=== PATIENT | female | born 1975 | race Caucasian/White ===

== ENCOUNTER → 2016-06-27 | Outpatient (CLI) | payer OTHER ==
--- NOTE | 2016-06-28 05:49 | RAD ---
Procedure: XR ABDOMEN 2 VIEWS SUPINE ERECT Exam Date: 06/27/2016 Ordering Provider: Luz Renee Clinical Indication: EPIGASTRIC, RUQ PAIN Comparison: None Findings: Postsurgical changes in the lumbosacral spine. There is no small or large bowel distention. There are no air-fluid levels. There is no pneumoperitoneum. There are no suspicious calcifications. There is no acute skeletal abnormality. Impression: 1. No acute findings. Electronically signed by: Jermaine Alfaro MD 06/28/2016 5:49 AM CDT
== END | disposition home or self-care (01) ==
LOC: YCFC.O 08:14
PROVIDERS: ATTEND Nurse Practitioner Family
DX: R10.13 Epigastric pain (principal); R19.7 Diarrhea, unspecified

== ENCOUNTER → 2016-07-02 | Outpatient (CLI) | payer OTHER ==
--- NOTE | 2016-07-02 17:51 | US ---
EXAM DESCRIPTION: Gall Bladder CLINICAL HISTORY: 41 years, Female, EPIGASTRIC PAIN COMPARISON: None. FINDINGS: Gallstone present about 1.5 cm apparently freely movable. Wall not thickened. No tenderness to scanning the gallbladder. Common bile duct 3.5 mm. Intrahepatic ducts not dilated. Liver 14.2 cm. Normal echogenicity. Head and body pancreas unremarkable. Pancreatic tail not well seen. IMPRESSION: Gallstone present about 1.5 cm. No biliary distention or tenderness to scanning the gallbladder. Liver unremarkable Electronically signed by: Billy Skaggs MD 07/02/2016 5:51 PM CDT
== END | disposition home or self-care (01) ==
LOC: US 10:28
PROVIDERS: ATTEND Nurse Practitioner Family
DX: R10.13 Epigastric pain (principal)

== ENCOUNTER 2016-08-03 06:00 | Day surgery (SDC) | payer SELFPAY ==
[2016-08-03] MEDS ORDERED: SODIUM CHL 0.9% 100ML MINI-BAG 100 ML IVPB ONE (06:52)
[2016-08-03] MEDS: LACTATED RINGERS 1,000 ML ONE (07:40)
[2016-08-03] MEDS ORDERED: MIDAZOLAM INJ 5 MG/5 ML VIAL ONE (08:22)
[2016-08-03] MEDS ORDERED: fentaNYL CITRATE INJ 50 MCG/ML AMP ONE (08:22)
[2016-08-03] MEDS ORDERED: ROCURONIUM BROMIDE 10 MG/ML VIAL ONE (08:22)
[2016-08-03] MEDS: ceFAZolin SODIUM 1 GM VIAL ONE (08:28)
[2016-08-03] MEDS: BUPIVACAINE 0.25% W/EPI 50 ML VIAL INJ ONE (09:10)
[2016-08-03] MEDS: HEPARIN SODIUM (PORCINE) 10,000 UNITS/ML VIAL ONE (09:10)
[2016-08-03] MEDS ORDERED: HYDROmorphone HCL INJ 2 MG/ML VIAL ONE (09:31)
[2016-08-03] MEDS ORDERED: SUGAMMADEX SODIUM 200 MG/2 ML VIAL IV ONE (09:55)
[2016-08-03 11:00] VITALS: BP 122/78
--- NOTE | 2016-08-03 11:09 | OP ---
DATE OF PROCEDURE: 08/03/16 PREOPERATIVE DIAGNOSIS: 1. Symptomatic cholelithiasis. POSTOPERATIVE DIAGNOSIS: 1. Symptomatic cholelithiasis. 2. Chronic cholecystitis. 3. Aberrant right hepatic duct. PROCEDURE: 1. Laparoscopic cholecystectomy with intraoperative cholangiography using fluoroscopy. SURGEON: Charanjit Craft MD. DAIRY EQUIPMENT SPECIALIST: None. ANESTHESIA: Local infiltration of 0.25% Marcaine with epinephrine and general endotracheal anesthesia. INDICATION: The patient is a 41-year-old male who has had approximately 6+ weeks symptoms of right upper quadrant pain with radiation to the back and bloating, nausea, vomiting, and fatty food intolerance. She has also had diarrhea and a large amount of belching. She has sonographically diagnosed cholelithiasis. There is no history of hepatitis or jaundice. The patient was brought to the Surgical Suite today for cholecystectomy after the risks, benefits and alternatives to the procedure were discussed and accepted. FINDINGS: The patient had multiple adhesions to the gallbladder and to the right lobe of the liver. No other obvious pathology was identified. Intraoperative cholangiography revealed free flow into the duodenum with no filling defects or strictures noted. It is noted, however, that there is an aberrant right hepatic duct and that the cystic duct emptied into the aberrant right hepatic duct which emptied into the distal common bile duct. DESCRIPTION OF PROCEDURE: After adequate general endotracheal anesthesia was obtained, the patient was prepped and draped in the usual sterile manner. She was given Ancef preoperatively. Surgical time-out was taken. The infraumbilical area was infiltrated with local anesthesia. A transverse incision was made with a sharp knife. Dissection was carried down through the skin and subcutaneous tissue to the midline fascia using blunt dissection. Traction sutures were placed on either side of the midline. A small incision was made in the midline fascia and the peritoneum was opened bluntly. Jose trocar was introduced under direct vision into the abdominal cavity and fixed in place with the 20 mL balloon. CO2 was then insufflated until a pressure of 12 mmHg was reached and the abdomen was tympanitic in all four quadrants. When this was done, the laparoscope was introduced. The abdomen was inspected with the previously noted findings. The patient was then placed in reverse Trendelenburg position, turned to the left side. The upper abdominal ports were placed under direct vision. The tip gallbladder was grasped and elevated and the adhesions to the gallbladder from the omentum were taken down using electrocautery and blunt dissection. When this was done, the neck of the gallbladder was retracted superiorly and laterally. The triangle of Calot was then explored with the cystic duct and cystic artery identified and isolated. The cystic duct was hemoclipped once proximally. The cystic artery was hemoclipped twice proximally and once distally. A small incision was made in the cystic duct. The cholangiogram catheter was introduced through a separate stab wound in the right upper quadrant, introduced into the cystic duct and clipped in place. Cholangiograms were then taken using fluoroscopy which revealed the aberrant right hepatic duct. Otherwise, free flow into the duodenum with no filling defects or strictures noted. When this was done, the cystic duct catheter was removed. The cystic duct was hemoclipped three times distally and divided between the hemoclips. The cystic artery was divided. The gallbladder was then dissected free from the gallbladder bed of the liver. A second vessel was identified and clipped. The gallbladder was then removed from the subhepatic space in the usual manner under direct vision. When this was done, the subhepatic space and subphrenic space were irrigated copiously with saline. There was some oozing from the gallbladder bed of the liver which was easily controlled with electrocautery. When this was done, hemostasis was noted to be adequate. The ivy hepatis was inspected and no bleeding or bile leak was identified. The upper abdominal ports were removed under direct vision. There was some oozing from the lateral port side and from the cholangiogram site. Both of these were controlled with electrocautery. Hemostasis was noted to be adequate. At this point, the CO2, the laparoscope and the infraumbilical port were removed. The infraumbilical port site fascia was approximated with a single [id number] suture of 0 Vicryl. Subcutaneous tissue was irrigated with saline. Skin edges were approximated with 4-0 Vicryl subcuticular sutures, benzoin and Steri-Strips. Sterile dressings were applied. The patient was awakened and taken to the Recovery Room in good and stable condition. Estimated blood loss was less than 25 mL. All sponge, needle and instrument counts were correct. #[id number] [facility]
[2016-08-03] MEDS: HYDROcodone 5MG/APAP 325MG 1 EA TAB PO ONE (11:25)
[2016-08-03] MEDS ORDERED: HYDROcodone 5MG/APAP 325MG 1 EA TAB ONE (11:27)
[2016-08-03] MEDS ORDERED: METOCLOPRAMIDE HCL INJ 10 MG/2 ML VIAL IV ONE (12:00)
[2016-08-03] MEDS ORDERED: DEXAMETHASONE INJ 10 MG/ML VIAL IV ONE (12:00)
[2016-08-03] MEDS ORDERED: raNITIdine HCL INJ 25 MG/ML VIAL IV ONE (12:00)
[2016-08-03] MEDS ORDERED: PROPOFOL 200 MG/20 ML VIAL IV ONE (12:00)
[2016-08-03] MEDS ORDERED: LIDOCAINE 1% 10 ML VIAL INJ ONE (12:00)
[2016-08-03 12:16] VITALS: TEMP 97.5; O2SAT 100
== END 2016-08-03 12:00 | disposition home or self-care (01) ==
LOC: AMB 06:00
PROVIDERS: ATTEND Surgery
DX: K80.10 Calculus of gallbladder with chronic cholecystitis without obstruction (principal); K58.9 Irritable bowel syndrome, unspecified; K21.9 Gastro-esophageal reflux disease without esophagitis; G89.29 Other chronic pain; M54.9 Dorsalgia, unspecified; Z79.899 Other long term (current) drug therapy
CPT/HCPCS: 00790; 36415; 47563; 76000; 80048; 81001; 84703; 85025; J0690; J1100; J1170; J1644; J2250; J2765; J2780; J3010; J3490; J7050; J7120

== ENCOUNTER → 2017-12-13 | Outpatient (CLI) | payer OTHER | LOC: LAB.O 10:36 | PROVIDERS: ATTEND Obstetrics & Gynecology | DX: N92.1 Excessive and frequent menstruation with irregular cycle (principal) ==